=== PATIENT | female | born 1940 | race Caucasian/White ===

== ENCOUNTER 2020-08-02 09:25 | Inpatient (IN) ==
[2020-08-02] MEDS ORDERED: cefTRIAXone 2 GM ADDV.VIAL 2 GM in NS 0.9% 100 ml BAG 100 ML IVPB ONE (11:37)
[2020-08-02 12:07] LABS: ABS Basophils 0.1 10^3/ul (0-0.2); ABS Eosinophils 0.2 10^3/ul (0-0.6); ABS Lymphocytes 1.7 10^3/ul (1.0-4.8); ABS Monocytes 0.8 10^3/ul (0-0.8); ABS Neutrophils 5.3 10^3/ul (1.5-7.7); Eosinophil % 2.4 %; Hematocrit 45 % (35-47); Hemoglobin 14.9 g/dL (12.0-16.0); Lymphocyte % 21.1 %; Mean Corpuscular HGB Conc 33 g/dL (31-36); Mean Corpuscular Hemoglobin 30 pg (27-31); Mean Corpuscular Volume 89 fL (80-97); Mean Platelet Volume 8.9 fL (7.4-10.4); Platelet Count 226 10^3/uL (150-450); Red Blood Count 5.05 10^6 /uL (3.70-4.87); Red Cell Distribution Width 15 % (10-15); White Blood Count 8.1 10^3/uL (3.5-10.8)
[2020-08-02 12:25] LABS: Urine Appearance Cloudy; Urine Bilirubin Negative (Negative); Urine Blood Negative (Negative); Urine Color Yellow; Urine Glucose Negative (Negative); Urine Ketones Negative (Negative); Urine Nitrite Negative (Negative); Urine Protein 1+(30 mg/dL) (Negative); Urine Specific Gravity 1.012 (1.010-1.030); Urine Urobilinogen Positive (Negative)
[2020-08-02 12:31] LABS: Urine Bacteria Absent (Absent); Urine Red Blood Cell Trace(0-2/hpf) (Absent); Urine Squamous Epithelial Cell Present (Absent); Urine White Blood Cell Trace(0-5/hpf) (Absent)
[2020-08-02 12:33] LABS: ALT 10 U/L (7-52); AST 18 U/L (13-39); Albumin 4.3 g/dL (3.2-5.2); Albumin/Globulin Ratio 1.5 (1-3); Alkaline Phosphatase 72 U/L (34-104); Anion Gap 9 mmol/L (2-11); BUN/Creatinine Ratio 15.8 (8-20); Blood Urea Nitrogen 19 mg/dL (6-24); C Reactive Protein 2.48 mg/L (<8.01); CO2 Carbon Dioxide 24 mmol/L (22-32); Calcium 9.9 mg/dL (8.6-10.3); Chloride 106 mmol/L (101-111); EGFR African American 52.6 (>60); EGFR Non-African American 43.4 (>60); Globulin 2.8 g/dL (2-4); Glucose 165 mg/dL (70-100); Magnesium 1.9 mg/dL (1.9-2.7); Potassium 4.4 mmol/L (3.5-5.0); Sodium 139 mmol/L (135-145); Total Protein 7.1 g/dL (6.4-8.9)
[2020-08-02 12:35] LABS: Troponin I 0.01 ng/mL (<0.03)
[2020-08-02 12:42] LABS: Urine Benzodiazepine Screen None Detected (None Detect); Urine Cannabinoids Screen None Detected (None Detect); Urine Opiates Screen None Detected (None Detect)
[2020-08-02] MEDS ORDERED: Ondansetron 4 mg VIAL 2 MG/ML 2 ml VIAL IV PRN (13:01)
[2020-08-02] MEDS ORDERED: Senna TAB 8.6 mg TAB PO PRN (13:01)
[2020-08-02] MEDS ORDERED: Dextrose 50% Syringe 50 ml 25 GM/50 ML SYRINGE IV PUSH PRN (13:14)
[2020-08-02 13:27] LABS: Cholesterol 180 mg/dL; HDL Cholesterol 28.3 mg/dL; LDL Cholesterol 90 mg/dL; Triglycerides 310 mg/dL
[2020-08-02 13:32] LABS: Alcohol, S < 10 mg/dL (<10)
[2020-08-02] MEDS ORDERED: Iodixanol (CONTRAST) 320 MG/ML 100 ML SDV IV ONE (15:05)
[2020-08-02 16:35] LABS: TSH Ultra Thyroid Stim Horm 4.15 mcIU/mL (0.34-5.60)
[2020-08-03 06:25] LABS: ABS Basophils 0.1 10^3/ul (0-0.2); ABS Eosinophils 0.4 10^3/ul (0-0.6); ABS Neutrophils 6.2 10^3/ul (1.5-7.7); Eosinophil % 4.6 %; Hematocrit 42 % (35-47); Hemoglobin 14.1 g/dL (12.0-16.0); Lymphocyte % 11.1 %; Mean Corpuscular HGB Conc 34 g/dL (31-36); Mean Corpuscular Hemoglobin 30 pg (27-31); Mean Corpuscular Volume 88 fL (80-97); Mean Platelet Volume 8.9 fL (7.4-10.4); Platelet Count 204 10^3/uL (150-450); Red Blood Count 4.76 10^6 /uL (3.70-4.87); Red Cell Distribution Width 14 % (10-15); White Blood Count 8.6 10^3/uL (3.5-10.8)
[2020-08-03 06:41] LABS: BUN/Creatinine Ratio 16.9 (8-20); Calcium 9.5 mg/dL (8.6-10.3); EGFR African American 53.6 (>60); EGFR Non-African American 44.3 (>60)
[2020-08-03] MEDS: Cholecalciferol (VIT D3) 1,000 unit TAB PO SCH (09:33)
[2020-08-04] MEDS: Cholecalciferol (VIT D3) 1,000 unit TAB PO SCH (08:46)
[2020-08-04] MEDS ORDERED: Influenza VAC *QUAD* 2020-21* 0.5 ML SYRINGE IM ONE (09:00)
[2020-08-04 19:33] LABS: Vitamin B12 1122 pg/mL (180-914)
[2020-08-05 07:14] LABS: BUN/Creatinine Ratio 18.2 (8-20); EGFR African American 52.1 (>60)
[2020-08-05] MEDS: Cholecalciferol (VIT D3) 1,000 unit TAB PO SCH (10:31)
[2020-08-05 16:05] VITALS: BP 143/81
== END 2020-08-05 18:20 | disposition home or self-care (01) | DRG 66 ==
LOC: ED 09:25 → MEDTELE 13:01
PROVIDERS: ADMIT Hospitalist; ATTEND Student in an Organized Health Care Education/Training Program

== ENCOUNTER 2023-02-24 14:54 | Inpatient (IN) ==
[2023-02-24] MEDS ORDERED: Morphine 4 MG/ML VIAL (1 ml) IV ONE ×2 (15:33→18:15)
[2023-02-24 15:41] LABS: ABS Basophils 0.2 10^3/uL (0.0-0.1); ABS Eosinophils 0.5 10^3/uL (0.0-0.5); ABS Lymphocytes 1.5 10^3/uL (1.0-4.8); ABS Monocytes 1.1 10^3/uL (0.0-0.9); ABS Neutrophils 5.8 10^3/uL (1.5-7.6); Eosinophil % 5.8 %; Hemoglobin 10.5 g/dL (11.5-14.3); Mean Corpuscular Hemoglobin 24.6 pg (27-33); Mean Corpuscular Hgb Conc 31.9 g/dL (31-36); Mean Platelet Volume 8.1 fL (7.5-11.2); Platelet Count 285 10^3/uL (150-450); Red Blood Count 4.29 10^6/uL (3.63-4.92); Red Cell Distribution Width 17.2 % (12-17); White Blood Count 9.1 10^3/uL (3.8-11.8)
[2023-02-24 16:03] LABS: ALT 11 U/L (7-52); AST 20 U/L (13-39); Albumin 3.9 g/dL (3.2-5.2); Albumin/Globulin Ratio 1.4 (1-3); Alkaline Phosphatase 110 U/L (35-149); Anion Gap 6 mmol/L (2-16); Blood Urea Nitrogen 18 mg/dL (6-24); CO2 Carbon Dioxide 21 mmol/L (22-32); Calcium 8.8 mg/dL (8.6-10.3); Chloride 113 mmol/L (101-111); Creatinine, Serum 1.16 mg/dL (0.51-0.95); Globulin 2.8 g/dL (2-4); Glucose 171 mg/dL (70-100); Sodium 140 mmol/L (135-145); Total Protein 6.7 g/dL (6.4-8.9); eGFR CKD-EPI 47.4 (>60)
[2023-02-24] MEDS ORDERED: Lidocaine 1% MPF 5 ML VIAL INJ ONE (19:50)
[2023-02-24] MEDS ORDERED: Ondansetron 4 mg VIAL 2 MG/ML 2 ml VIAL IV ONE (19:58)
[2023-02-24] MEDS ORDERED: Heparin 5000 UNITS/ML 1 mL VIAL SUBCUT ONE (21:06)
[2023-02-24 21:28] LABS: % Iron Saturation 5 % (15-55); .Transferrin 277 mg/dL (203-362); Iron < 20 ug/dL (50-212); Total Iron Binding Capacity 388 mcg/dL (250-450); Unsaturated Iron Binding 368 ug/dL
[2023-02-24] MEDS ORDERED: Dextrose 50% Syringe 50 ml 25 GM/50 ML SYRINGE IV PUSH PRN (21:30)
[2023-02-24 21:49] LABS: Ferritin 8.7 ng/mL (11-307)
[2023-02-24] MEDS ORDERED: Lactated Ringers 1000 ml BAG 1,000 ML IV SCH (23:00)
[2023-02-25 06:11] LABS: Hematocrit 29.6 % (35-45); Hemoglobin 9.3 g/dL (11.5-14.3); Mean Corpuscular Hemoglobin 24.2 pg (27-33); Mean Corpuscular Hgb Conc 31.6 g/dL (31-36); Mean Corpuscular Volume 76.7 fL (80-97); Platelet Count 249 10^3/uL (150-450); Red Blood Count 3.86 10^6/uL (3.63-4.92); Red Cell Distribution Width 16.4 % (12-17); White Blood Count 11.8 10^3/uL (3.8-11.8)
[2023-02-25 06:16] LABS: INR 1.08 (0.88-1.18)
[2023-02-25 06:47] LABS: Calcium 8.5 mg/dL (8.6-10.3); Creatinine, Serum 1.17 mg/dL (0.51-0.95); Magnesium 1.8 mg/dL (1.9-2.7); Potassium 5.2 mmol/L (3.5-5.0); eGFR CKD-EPI 46.9 (>60)
[2023-02-25] MEDS ORDERED: Ferric Gluconate IV 250 MG in NS 0.9% 250 ml 200 ML IVPB ONE (09:45)
[2023-02-25] MEDS ORDERED: Lactated Ringers 1000 ml BAG 1,000 ML IV SCH (10:00)
[2023-02-25] MEDS ORDERED: NS 0.9% 500 ml BAG 500 ML IV ONE (11:47)
[2023-02-25] MEDS ORDERED: NS 0.9% 1000 ml BAG 1,000 ML IV SCH ×2 (12:00→15:44)
[2023-02-25] MEDS: Heparin 5000 UNITS/ML 1 mL VIAL SUBCUT SCH ×2 (14:25→22:18)
[2023-02-25 14:31] LABS: INR 1.05 (0.88-1.18)
[2023-02-25] MEDS ORDERED: Magnesium Sulfate 2 gm BAG 2 GM/50 ML BAG IVPB ONE (14:57)
[2023-02-25 15:01] LABS: Calcium 8.6 mg/dL (8.6-10.3); Creatinine, Serum 1.13 mg/dL (0.51-0.95); Potassium 5.4 mmol/L (3.5-5.0); eGFR CKD-EPI 48.9 (>60)
[2023-02-25] MEDS ORDERED: SODIUM ZIRCONIUM CYCLOSILICATE 10 GM PACKET PO ONE (15:15)
[2023-02-25] MEDS ORDERED: Iodixanol (CONTRAST) 320 MG/ML 100 ML SDV IV ONE (15:28)
[2023-02-25 18:38] LABS: Urine Appearance Clear; Urine Bilirubin Negative (Negative); Urine Blood 1+ (Negative); Urine Color Yellow; Urine Glucose Negative (Negative); Urine Ketones Negative (Negative); Urine Nitrite Negative (Negative); Urine Protein Negative (Negative); Urine Specific Gravity 1.023 (1.002-1.030); Urine Urobilinogen Negative (Negative)
[2023-02-25 18:44] LABS: Urine Bacteria Absent (Absent); Urine Red Blood Cell Trace(0-2/hpf) (Absent); Urine Squamous Epithelial Cell Present (Absent); Urine White Blood Cell Trace(0-5/hpf) (Absent)
[2023-02-25 23:24] LABS: Calcium 8.1 mg/dL (8.6-10.3); Creatinine, Serum 1.12 mg/dL (0.51-0.95); Potassium 4.9 mmol/L (3.5-5.0); eGFR CKD-EPI 49.4 (>60)
[2023-02-26 03:42] LABS: Creatinine, Serum 1.1 mg/dL (0.51-0.95); Magnesium 2.2 mg/dL (1.9-2.7); Potassium 4.8 mmol/L (3.5-5.0); eGFR CKD-EPI 50.5 (>60)
[2023-02-26 05:35] LABS: Hematocrit 28.2 % (35-45); Mean Corpuscular Hemoglobin 24.6 pg (27-33); Mean Corpuscular Volume 76.8 fL (80-97); Platelet Count 221 10^3/uL (150-450); Red Blood Count 3.68 10^6/uL (3.63-4.92); Red Cell Distribution Width 16.8 % (12-17); White Blood Count 12.6 10^3/uL (3.8-11.8)
[2023-02-26 05:53] LABS: ABS Basophils 0.1 10^3/uL (0.0-0.1); ABS Eosinophils 0.2 10^3/uL (0.0-0.5); ABS Lymphocytes 1.1 10^3/uL (1.0-4.8); ABS Monocytes 1.8 10^3/uL (0.0-0.9); ABS Neutrophils 9.4 10^3/uL (1.5-7.6); Eosinophil % 1.4 %
[2023-02-26] MEDS ORDERED: Piperacillin/Tazobac ADVAN 3.375 GM in NS 0.9% 100 ml BAG 100 ML IV ONE (08:51)
[2023-02-26] MEDS ORDERED: Zosyn per Pharmacy NOTE FOLLOW UP SCH ×2 (09:00)
[2023-02-26] MEDS ORDERED: Metoclopramide 5 MG/ML VIAL (10 mg) IV PRN (12:30)
[2023-02-26] MEDS ORDERED: Buffered Lidocaine 1% SYRIN 1 ml INTRADERM ONE (12:30)
[2023-02-26] MEDS ORDERED: Ondansetron 4 mg VIAL 2 MG/ML 2 ml VIAL IV PRN (12:30)
[2023-02-26] MEDS ORDERED: HYDROcodone/ACETAMIN 5/325 mg TAB PO PRN (12:30)
[2023-02-26] MEDS ORDERED: Naloxone 0.4 mg VIAL 0.4 mg/ml 1 ml VIAL IV PRN ×2 (12:30→16:56)
[2023-02-26] MEDS ORDERED: fentaNYL 100 mcg/2 ml 50 MCG/ML VIAL IV PRN (12:30)
[2023-02-26] MEDS ORDERED: Lactated Ringers 1000 ml BAG 1,000 ML IV SCH (13:00)
[2023-02-26] MEDS ORDERED: ceFAZolin 2 GM in NS PREMIX 2 GM/100 ML BAG IVPB ONE (14:34)
[2023-02-26] MEDS ORDERED: fentaNYL 100 mcg/2 ml 50 MCG/ML VIAL ONE ×2 (14:36→15:37)
[2023-02-26] MEDS ORDERED: Ketamine HCL 50 mg/ml 10 ml VIAL (500 MG) ONE (14:37)
[2023-02-26] MEDS ORDERED: Phenylephrine IV 10 MG/ML 1 ml VIAL ONE (14:38)
[2023-02-26] MEDS ORDERED: Propofol 10 MG/ML 20 ML BTL ONE (15:58)
[2023-02-26] MEDS ORDERED: Acetaminophen IV 1 GM/100ML 1,000 MG/100 ML BAG IV ONE (15:58)
[2023-02-26] MEDS ORDERED: Dexamethasone IV 4 MG/ML VIAL 1 ml VIAL ONE (15:58)
[2023-02-26] MEDS ORDERED: Ondansetron 4 mg VIAL 2 MG/ML 2 ml VIAL ONE (15:58)
[2023-02-26] MEDS ORDERED: HYDROmorphone 0.5 MG/0.5 ML SYRINGE ONE ×2 (16:02→16:46)
[2023-02-26] MEDS ORDERED: Lidocaine 2% PF 5 ML VIAL ONE (16:03)
[2023-02-26] MEDS ORDERED: ZOSYN 3.375 GM Q8H per EXTENDED INFUSION IV SCH (16:30)
[2023-02-26] MEDS ORDERED: HYDROmorphone 1 MG/1 ML SYRINGE IV PRN (16:56)
[2023-02-26] MEDS: ZOSYN 3.375 GM Q8H per EXTENDED INFUSION IV SCH (20:10)
[2023-02-27] MEDS: ceFAZolin 1 GM X 3 DOSES POST-OP Q8H (AddVan) IVPB SCH ×3 (01:13→17:44)
[2023-02-27] MEDS: ZOSYN 3.375 GM Q8H per EXTENDED INFUSION IV SCH ×3 (03:51→23:47)
[2023-02-27] MEDS ORDERED: LACTATED RINGERS 1000 ML BAG IV SCH (06:00)
[2023-02-27] MEDS ORDERED: Senna TAB 8.6 mg TAB PO PRN (07:04)
[2023-02-27] MEDS ORDERED: Magnesium Hydroxide LIQ 30 ML UDC PO PRN (07:04)
[2023-02-27] MEDS ORDERED: Polyethylene Glycol 3350 17 GM PACKET PO PRN (07:04)
[2023-02-27 07:22] LABS: ABS Lymphocytes 0.6 10^3/uL (1.0-4.8); ABS Monocytes 1.2 10^3/uL (0.0-0.9); ABS Neutrophils 12.4 10^3/uL (1.5-7.6); Hematocrit 24.5 % (35-45); Hemoglobin 7.8 g/dL (11.5-14.3); Lymphocyte % 4.3 %; Mean Corpuscular Hemoglobin 24.6 pg (27-33); Mean Corpuscular Hgb Conc 31.9 g/dL (31-36); Mean Corpuscular Volume 77.2 fL (80-97); Mean Platelet Volume 8.1 fL (7.5-11.2); Platelet Count 231 10^3/uL (150-450); Red Blood Count 3.18 10^6/uL (3.63-4.92); Red Cell Distribution Width 16.4 % (12-17); White Blood Count 14.2 10^3/uL (3.8-11.8)
[2023-02-27 07:57] LABS: Potassium 4.7 mmol/L (3.5-5.0)
[2023-02-27 07:58] LABS: Calcium 8.1 mg/dL (8.6-10.3); Creatinine, Serum 1.52 mg/dL (0.51-0.95); Magnesium 2.1 mg/dL (1.9-2.7); eGFR CKD-EPI 34.2 (>60)
[2023-02-27] MEDS ORDERED: Enoxaparin 40 MG/0.4 ML SYR SUBCUT SCH (09:00)
[2023-02-27] MEDS ORDERED: Ferric Gluconate IV 250 MG in NS 0.9% 250 ml 200 ML IVPB ONE (11:36)
[2023-02-27] MEDS ORDERED: ZOSYN 3.375 GM x ONE DOSE over 30 miuntes IV (22:00)
[2023-02-28] MEDS: ZOSYN 3.375 GM Q8H per EXTENDED INFUSION IV SCH ×3 (02:00→22:57)
[2023-02-28 06:45] LABS: ABS Basophils 0.1 10^3/uL (0.0-0.1); ABS Eosinophils 0.2 10^3/uL (0.0-0.5); ABS Lymphocytes 1.2 10^3/uL (1.0-4.8); ABS Monocytes 1.5 10^3/uL (0.0-0.9); ABS Neutrophils 10.1 10^3/uL (1.5-7.6); ABS Nucleated RBC 0.01 10^3/ul; Eosinophil % 1.3 %; Hematocrit 22.9 % (35-45); Hemoglobin 7.4 g/dL (11.5-14.3); Lymphocyte % 8.9 %; Mean Corpuscular Hemoglobin 24.6 pg (27-33); Mean Corpuscular Hgb Conc 32.3 g/dL (31-36); Mean Corpuscular Volume 76.1 fL (80-97); Mean Platelet Volume 8.3 fL (7.5-11.2); Platelet Count 255 10^3/uL (150-450); Red Blood Count 3.01 10^6/uL (3.63-4.92); Red Cell Distribution Width 16.7 % (12-17)
[2023-02-28 07:09] LABS: Creatinine, Serum 1.47 mg/dL (0.51-0.95); Magnesium 2.1 mg/dL (1.9-2.7); Potassium 4.4 mmol/L (3.5-5.0); eGFR CKD-EPI 35.6 (>60)
[2023-02-28] MEDS ORDERED: NS 0.9% 1000 ml BAG 1,000 ML IV SCH (09:15)
[2023-02-28] MEDS: Enoxaparin 30 MG/0.3 ML SYR SUBCUT SCH (09:37)
[2023-02-28 14:12] LABS: Hematocrit 24.9 % (35-45); Mean Corpuscular Hemoglobin 24.6 pg (27-33); Mean Corpuscular Hgb Conc 32.1 g/dL (31-36); Mean Corpuscular Volume 76.7 fL (80-97); Mean Platelet Volume 7.8 fL (7.5-11.2); Platelet Count 295 10^3/uL (150-450); Red Blood Count 3.25 10^6/uL (3.63-4.92); Red Cell Distribution Width 16.6 % (12-17); White Blood Count 14.1 10^3/uL (3.8-11.8)
[2023-02-28] MEDS: Polyethylene Glycol 3350 17 GM PACKET PO SCH (17:02)
[2023-02-28] MEDS: Ferric Gluconate IV 250 MG in NS 0.9% 250 ml 200 ML IVPB SCH (18:10)
[2023-02-28] MEDS: DOXYcycline 100 MG in NS 0.9% 250 ml 250 ML IVPB SCH ×2 (23:20→23:42)
[2023-03-01] MEDS: ZOSYN 3.375 GM Q8H per EXTENDED INFUSION IV SCH ×3 (02:20→17:56)
[2023-03-01 06:09] LABS: Hematocrit 25.8 % (35-45); Hemoglobin 8.3 g/dL (11.5-14.3); Mean Corpuscular Hemoglobin 24.6 pg (27-33); Mean Corpuscular Hgb Conc 32.1 g/dL (31-36); Mean Corpuscular Volume 76.6 fL (80-97); Mean Platelet Volume 8.2 fL (7.5-11.2); Platelet Count 297 10^3/uL (150-450); Red Blood Count 3.37 10^6/uL (3.63-4.92); White Blood Count 13.8 10^3/uL (3.8-11.8)
[2023-03-01 06:31] LABS: Calcium 8.4 mg/dL (8.6-10.3); Creatinine, Serum 1.3 mg/dL (0.51-0.95); Magnesium 1.8 mg/dL (1.9-2.7); Phosphorus 2.6 mg/dL (2.5-5.0); Potassium 4.4 mmol/L (3.5-5.0); eGFR CKD-EPI 41.3 (>60)
[2023-03-01] MEDS ORDERED: Magnesium Sulfate 2 gm BAG 2 GM/50 ML BAG IVPB ONE (07:03)
[2023-03-01] MEDS: Polyethylene Glycol 3350 17 GM PACKET PO SCH ×2 (07:54→08:14)
[2023-03-01] MEDS ORDERED: Glycerin ADULT 2.4 gm SUPP PR ONE (08:09)
[2023-03-01] MEDS ORDERED: Mineral Oil ENEMA 118 ML/BOTTLE BOTTLE PR PRN (08:09)
[2023-03-01] MEDS: Magnesium Hydroxide LIQ 30 ML UDC PO SCH ×2 (08:14→20:32)
[2023-03-01] MEDS: Enoxaparin 30 MG/0.3 ML SYR SUBCUT SCH (08:19)
[2023-03-01] MEDS: Ferric Gluconate IV 250 MG in NS 0.9% 250 ml 200 ML IVPB SCH (09:40)
[2023-03-01] MEDS: DOXYcycline 100 MG in NS 0.9% 250 ml 250 ML IVPB SCH ×2 (12:31→23:04)
[2023-03-01] MEDS ORDERED: Ferric Gluconate IV 250 MG in NS 0.9% 250 ml 200 ML IVPB ONE (13:41)
[2023-03-01] MEDS: Senna TAB 8.6 mg TAB PO SCH (20:32)
[2023-03-02] MEDS: ZOSYN 3.375 GM Q8H per EXTENDED INFUSION IV SCH ×3 (02:32→20:14)
[2023-03-02 06:15] LABS: Hemoglobin 7.8 g/dL (11.5-14.3); Mean Corpuscular Hemoglobin 24.9 pg (27-33); Mean Corpuscular Hgb Conc 32.4 g/dL (31-36); Mean Corpuscular Volume 76.8 fL (80-97); Mean Platelet Volume 8.1 fL (7.5-11.2); Platelet Count 273 10^3/uL (150-450); Red Blood Count 3.13 10^6/uL (3.63-4.92); Red Cell Distribution Width 17.1 % (12-17); White Blood Count 11.4 10^3/uL (3.8-11.8)
[2023-03-02 06:34] LABS: Calcium 8.2 mg/dL (8.6-10.3); Creatinine, Serum 1.08 mg/dL (0.51-0.95); Magnesium 2.1 mg/dL (1.9-2.7); Potassium 4.1 mmol/L (3.5-5.0); eGFR CKD-EPI 51.6 (>60)
[2023-03-02 06:39] LABS: ABS Basophils 0.1 10^3/uL (0.0-0.1); ABS Eosinophils 0.3 10^3/uL (0.0-0.5); ABS Lymphocytes 1.5 10^3/uL (1.0-4.8); ABS Monocytes 1.6 10^3/uL (0.0-0.9); ABS Neutrophils 7.9 10^3/uL (1.5-7.6); ABS Nucleated RBC 0.03 10^3/ul; Lymphocyte % 13.1 %; Nucleated Red Blood Cells % 0.2 /100 WBC (0.0-0.4)
[2023-03-02] MEDS: Enoxaparin 30 MG/0.3 ML SYR SUBCUT SCH (09:24)
[2023-03-02] MEDS: Polyethylene Glycol 3350 17 GM PACKET PO SCH (09:25)
[2023-03-02] MEDS: Magnesium Hydroxide LIQ 30 ML UDC PO SCH ×2 (09:25→21:33)
[2023-03-02] MEDS: Senna TAB 8.6 mg TAB PO SCH (21:32)
[2023-03-03] MEDS: ZOSYN 3.375 GM Q8H per EXTENDED INFUSION IV SCH ×3 (02:18→17:53)
[2023-03-03 05:45] LABS: Hematocrit 24.7 % (35-45); Hemoglobin 7.9 g/dL (11.5-14.3); Mean Corpuscular Hgb Conc 32.1 g/dL (31-36); Mean Corpuscular Volume 77.8 fL (80-97); Mean Platelet Volume 7.7 fL (7.5-11.2); Platelet Count 251 10^3/uL (150-450); Red Blood Count 3.18 10^6/uL (3.63-4.92); Red Cell Distribution Width 17.5 % (12-17); White Blood Count 10.8 10^3/uL (3.8-11.8)
[2023-03-03 06:11] LABS: Calcium 8.3 mg/dL (8.6-10.3); Creatinine, Serum 1.06 mg/dL (0.51-0.95); Magnesium 1.9 mg/dL (1.9-2.7); eGFR CKD-EPI 52.8 (>60)
[2023-03-03 08:29] LABS: Anisocytosis 1+; Microcytosis 1+; Polychromasia 1+
[2023-03-03 08:30] LABS: ABS Basophils 0.1 10^3/uL (0.0-0.1); ABS Eosinophils 0.4 10^3/uL (0.0-0.5); ABS Lymphocytes 1.3 10^3/uL (1.0-4.8); ABS Monocytes 1.4 10^3/uL (0.0-0.9); ABS Neutrophils 7.6 10^3/uL (1.5-7.6); ABS Nucleated RBC 0.01 10^3/ul; Eosinophil % 3.3 %; Lymphocyte % 12.4 %; Nucleated Red Blood Cells % 0.1 /100 WBC (0.0-0.4)
[2023-03-03] MEDS: Magnesium Hydroxide LIQ 30 ML UDC PO SCH ×2 (08:49→20:49)
[2023-03-03] MEDS: Enoxaparin 30 MG/0.3 ML SYR SUBCUT SCH (08:50)
[2023-03-03] MEDS: Polyethylene Glycol 3350 17 GM PACKET PO SCH (08:50)
[2023-03-03] MEDS ORDERED: Lidocaine 1% MPF 5 ML VIAL INJ ONE (15:26)
[2023-03-03] MEDS: Senna TAB 8.6 mg TAB PO SCH (20:45)
[2023-03-04] MEDS ORDERED: Ondansetron 4 mg VIAL 2 MG/ML 2 ml VIAL IV PRN (08:06)
[2023-03-04] MEDS: Enoxaparin 30 MG/0.3 ML SYR SUBCUT SCH (09:18)
[2023-03-04] MEDS: Polyethylene Glycol 3350 17 GM PACKET PO SCH (09:19)
[2023-03-04] MEDS: Magnesium Hydroxide LIQ 30 ML UDC PO SCH ×2 (09:19→21:18)
[2023-03-04] MEDS: Senna TAB 8.6 mg TAB PO SCH (20:48)
[2023-03-05] MEDS: Enoxaparin 30 MG/0.3 ML SYR SUBCUT SCH (07:52)
[2023-03-05] MEDS: Magnesium Hydroxide LIQ 30 ML UDC PO SCH ×2 (07:53→22:00)
[2023-03-05] MEDS: Polyethylene Glycol 3350 17 GM PACKET PO SCH (12:19)
[2023-03-05] MEDS: Senna TAB 8.6 mg TAB PO SCH (21:57)
[2023-03-06 06:43] LABS: Hematocrit 25.7 % (35-45); Hemoglobin 8.2 g/dL (11.5-14.3); Mean Corpuscular Hemoglobin 26.1 pg (27-33); Mean Corpuscular Hgb Conc 31.8 g/dL (31-36); Mean Corpuscular Volume 81.9 fL (80-97); Mean Platelet Volume 8.4 fL (7.5-11.2); Platelet Count 221 10^3/uL (150-450); Red Blood Count 3.13 10^6/uL (3.63-4.92); Red Cell Distribution Width 19.8 % (12-17); White Blood Count 12.6 10^3/uL (3.8-11.8)
[2023-03-06 07:08] LABS: Calcium 8.5 mg/dL (8.6-10.3); Potassium 4.8 mmol/L (3.5-5.0); eGFR CKD-EPI 56.6 (>60)
[2023-03-06 07:29] LABS: ABS Basophils 0.2 10^3/uL (0.0-0.1); ABS Eosinophils 0.5 10^3/uL (0.0-0.5); ABS Lymphocytes 1.5 10^3/uL (1.0-4.8); ABS Monocytes 1.4 10^3/uL (0.0-0.9); ABS Nucleated RBC 0.03 10^3/ul; Eosinophil % 4.1 %; Lymphocyte % 11.7 %; Nucleated Red Blood Cells % 0.2 /100 WBC (0.0-0.4)
[2023-03-06] MEDS: Polyethylene Glycol 3350 17 GM PACKET PO SCH (09:14)
[2023-03-06] MEDS: Magnesium Hydroxide LIQ 30 ML UDC PO SCH ×2 (09:14→20:18)
[2023-03-06] MEDS: Enoxaparin 30 MG/0.3 ML SYR SUBCUT SCH (09:20)
[2023-03-06] MEDS: Senna TAB 8.6 mg TAB PO SCH (20:17)
[2023-03-07] MEDS: Enoxaparin 30 MG/0.3 ML SYR SUBCUT SCH (08:51)
[2023-03-07] MEDS: Magnesium Hydroxide LIQ 30 ML UDC PO SCH ×2 (08:52→20:36)
[2023-03-07] MEDS: Polyethylene Glycol 3350 17 GM PACKET PO SCH (08:52)
[2023-03-07] MEDS: Senna TAB 8.6 mg TAB PO SCH (20:36)
[2023-03-08] MEDS: Enoxaparin 30 MG/0.3 ML SYR SUBCUT SCH (09:04)
[2023-03-08] MEDS: Polyethylene Glycol 3350 17 GM PACKET PO SCH (09:05)
[2023-03-08] MEDS: Magnesium Hydroxide LIQ 30 ML UDC PO SCH ×2 (09:06→21:07)
[2023-03-08] MEDS: Senna TAB 8.6 mg TAB PO SCH (21:06)
[2023-03-09 08:57] LABS: Rapid COVID-19 Molecular Undetected (Undetected)
[2023-03-09] MEDS: Magnesium Hydroxide LIQ 30 ML UDC PO SCH (09:17)
[2023-03-09] MEDS: Polyethylene Glycol 3350 17 GM PACKET PO SCH (09:22)
[2023-03-09] MEDS: Enoxaparin 30 MG/0.3 ML SYR SUBCUT SCH (09:23)
[2023-03-09 15:52] VITALS: BP 123/70
== END 2023-03-09 15:11 | DRG 480 ==
LOC: ED 14:54 → EDHOLD 18:34 → SUATTDRO 18:34 → SSU 23:06
PROVIDERS: ADMIT Internal Medicine; ATTEND Internal Medicine